=== PATIENT | male | born 1940 | race Caucasian/White ===

== ENCOUNTER → 2017-03-11 | Outpatient (CLI) | payer OTHER ==
[~2017-03-11] MED LIST: Amaryl4 MG PO; Aspir-Low81 MG PO; CLOP75 PO; COLCHICINE0.6 MG; DOXA4 PO; ERGO400 PO; FEBU40TA PO; GLIM2 PO; INSULANPEN; LEVSOD75; Lisinopril2.5 MG; METRONIDAZOLE; Magnesium200 MG PO; PIOG15 PO; Prilosec Otc20 MG; RANI150 PO; REPA1; [UNRECOGNIZED DRUG - REMARK]
[2017-03-11 14:37] LABS: BASOPHILS ABSOLUTE AUTO 0.05 K/mm3 (0.00-0.23); BASOPHILS PERCENT AUTO 1 % (0-2); EOSINOPHILS ABSOLUTE AUTO 0.23 K/mm3 (0.00-0.68); EOSINOPHILS PERCENT AUTO 3 % (0-6); Hematocrit 38.1 % (37.0-53.0); Hemoglobin 12.9 g/dL (13.5-17.5); IMMATURE GRAN ABSOLUTE AUTO 0.02 K/mm3 (0.00-0.10); IMMATURE GRAN PERCENT AUTO 0 % (0-1); LYMPHOCYTES PERCENT AUTO 18 % (21-46); MONOCYTES ABSOLUTE AUTO 0.98 K/mm3 (0.16-1.47); MONOCYTES PERCENT AUTO 12 % (4-13); Mean Corpuscular HGB 31.6 pg (26.0-34.0); Mean Corpuscular HGB Conc 33.9 g/dL (31.5-36.5); Mean Corpuscular Volume 93 fL (80-100); Mean Platelet Volume 10.8 fL (9.1-12.4); NEUTROPHILS ABSOLUTE AUTO 5.46 K/mm3 (1.96-9.15); NEUTROPHILS PERCENT AUTO 66 % (41-73); Platelet Count 158 K/mm3 (150-400); RDW Coefficient Variation 12.4 % (11.7-14.2); RDW Standard Deviation 42.7 fL (35.1-46.3); Red Blood Cell Count 4.08 M/mm3 (4.30-5.90); White Blood Cell Count 8.24 K/mm3 (4.00-11.30)
[2017-03-11 14:49] LABS: Albumin, Blood 3.5 g/dL (3.4-5.0); Albumin/Globulin Ratio 0.9 (0.8-1.8); Bilirubin, Total 0.5 mg/dL (0.1-1.0); Bun/Creatinine Ratio 14.6 (12.0-20.0); Calcium, Blood 9.7 mg/dL (8.5-10.1); Creatinine, Blood 2.12 mg/dL (0.60-1.20); Globulin, Blood 3.9 g/dL (2.2-4.0); Potassium, Blood 5.2 mmol/L (3.5-5.5); Total Protein, Blood 7.4 g/dL (6.4-8.2)
== END ==
LOC: LAB SHORT 14:33
PROVIDERS: Physician Assistant
DX: R73.9 Hyperglycemia, unspecified (principal)
CPT/HCPCS: 80053; 83036; 83690; 85025

== ENCOUNTER → 2017-03-12 | Outpatient (CLI) | payer OTHER ==
[2017-03-12 13:06] LABS: BASOPHILS ABSOLUTE AUTO 0.06 K/mm3 (0.00-0.23); BASOPHILS PERCENT AUTO 1 % (0-2); EOSINOPHILS ABSOLUTE AUTO 0.22 K/mm3 (0.00-0.68); EOSINOPHILS PERCENT AUTO 3 % (0-6); Hematocrit 37.3 % (37.0-53.0); Hemoglobin 12.6 g/dL (13.5-17.5); IMMATURE GRAN ABSOLUTE AUTO 0.03 K/mm3 (0.00-0.10); IMMATURE GRAN PERCENT AUTO 0 % (0-1); LYMPHOCYTES ABSOLUTE AUTO 1.41 K/mm3 (0.84-5.20); LYMPHOCYTES PERCENT AUTO 20 % (21-46); MONOCYTES ABSOLUTE AUTO 0.83 K/mm3 (0.16-1.47); MONOCYTES PERCENT AUTO 12 % (4-13); Mean Corpuscular HGB 31.9 pg (26.0-34.0); Mean Corpuscular HGB Conc 33.8 g/dL (31.5-36.5); Mean Corpuscular Volume 94 fL (80-100); Mean Platelet Volume 10.9 fL (9.1-12.4); NEUTROPHILS ABSOLUTE AUTO 4.66 K/mm3 (1.96-9.15); NEUTROPHILS PERCENT AUTO 65 % (41-73); Platelet Count 164 K/mm3 (150-400); RDW Coefficient Variation 12.4 % (11.7-14.2); Red Blood Cell Count 3.95 M/mm3 (4.30-5.90); White Blood Cell Count 7.21 K/mm3 (4.00-11.30)
[2017-03-12 13:31] LABS: Calcium, Blood 9.4 mg/dL (8.5-10.1); Creatinine, Blood 2.22 mg/dL (0.60-1.20)
== END ==
LOC: LAB SHORT 13:02
PROVIDERS: Physician Assistant
DX: E11.9 Type 2 diabetes mellitus without complications (principal)
CPT/HCPCS: 80048; 83690; 85025

== ENCOUNTER → 2017-07-12 | Outpatient (CLI) | payer OTHER ==
[~2017-07-12] MED LIST changes: -COLCHICINE0.6 MG; -INSULANPEN; -LEVSOD75; -REPA1
[2017-07-13 13:51] LABS: Stool Occult Bld Immuno 1 Positive (NEGATIVE)
== END | disposition home or self-care (01) ==
LOC: LAB EV 09:00
PROVIDERS: Hospitalist
DX: Z12.11 Encounter for screening for malignant neoplasm of colon (principal)
CPT/HCPCS: G0328

== ENCOUNTER → 2018-06-17 | Outpatient (CLI) | payer OTHER ==
[~2018-06-17] MED LIST changes: +COLCHICINE0.6 MG; +INSULANPEN; +LEVSOD75; +REPA1
[2018-06-17 14:02] LABS: Protein, Urine Random <5.0 mg/dL (0.0-11.9)
== END | disposition home or self-care (01) ==
LOC: LAB SRC 09:47 → LAB SHORT 09:47
PROVIDERS: Internal Medicine
DX: E11.22 Type 2 diabetes mellitus with diabetic chronic kidney disease (principal); I12.9 Hypertensive chronic kidney disease with stage 1 through stage 4 chronic kidney disease, or unspecified chronic kidney disease; N18.3 Chronic kidney disease, stage 3 (moderate); E03.8 Other specified hypothyroidism; E78.49 Other hyperlipidemia
CPT/HCPCS: 82570; 84105; 84156

== ENCOUNTER 2019-02-19 21:48 | Inpatient (IN) | payer OTHER ==
[~2019-02-19] VITALS: Ht 182.9 cm; Wt 90.1 kg
[2019-02-19 22:21] LABS: BASOPHILS ABSOLUTE AUTO 0.06 K/mm3 (0.00-0.23); BASOPHILS PERCENT AUTO 1 % (0-2); EOSINOPHILS ABSOLUTE AUTO 0.34 K/mm3 (0.00-0.68); EOSINOPHILS PERCENT AUTO 5 % (0-6); Hematocrit 37.6 % (37.0-53.0); Hemoglobin 12.2 g/dL (13.5-17.5); IMMATURE GRAN ABSOLUTE AUTO 0.03 K/mm3 (0.00-0.10); IMMATURE GRAN PERCENT AUTO 0 % (0-1); LYMPHOCYTES ABSOLUTE AUTO 2.05 K/mm3 (0.84-5.20); LYMPHOCYTES PERCENT AUTO 29 % (21-46); MONOCYTES ABSOLUTE AUTO 1.05 K/mm3 (0.16-1.47); MONOCYTES PERCENT AUTO 15 % (4-13); Mean Corpuscular HGB 31.1 pg (26.0-34.0); Mean Corpuscular HGB Conc 32.4 g/dL (31.5-36.5); Mean Corpuscular Volume 96 fL (80-100); NEUTROPHILS ABSOLUTE AUTO 3.61 K/mm3 (1.96-9.15); NEUTROPHILS PERCENT AUTO 51 % (41-73); Platelet Count 139 K/mm3 (150-400); RDW Coefficient Variation 13.2 % (11.7-14.2); RDW Standard Deviation 46.5 fL (35.1-46.3); Red Blood Cell Count 3.92 M/mm3 (4.30-5.90); White Blood Cell Count 7.14 K/mm3 (4.00-11.30)
[2019-02-19] MEDS ORDERED: COLCRYS0.6 M1 PO (22:21)
[2019-02-19 22:39] LABS: Alanine Aminotransfer (ALT/SGP 22 U/L (12-78); Albumin, Blood 3.3 g/dL (3.4-5.0); Alk Phos 66 U/L (50-136); Anion Gap 6 mmol/L (6-16); Aspartate Aminotrans (AST/SGOT 11 U/L (12-37); Bilirubin, Total 0.3 mg/dL (0.1-1.0); Blood Urea Nitrogen 23 mg/dL (8-24); Bun/Creatinine Ratio 10.2 (12.0-20.0); CO2, Blood 26 mmol/L (21-32); Calcium, Blood 8.8 mg/dL (8.5-10.1); Chloride, Blood 107 mmol/L (98-108); Creatinine, Blood 2.26 mg/dL (0.60-1.20); Globulin, Blood 3.4 g/dL (2.2-4.0); Glomerular Filtration Rate 30 (60-); Glucose, Blood 177 mg/dL (70-99); Potassium, Blood 4.8 mmol/L (3.5-5.5); Sodium, Blood 139 mmol/L (136-145); Total Protein, Blood 6.7 g/dL (6.4-8.2); Troponin I 0.325 ng/mL (0.000-0.040)
[2019-02-20 00:10] LABS: International Normalized Ratio 0.95; Prothrombin Time Results 10.1 Sec (9.7-11.5)
[2019-02-20 00:40] LABS: CHOL/HDL RATIO 5.7; Cholesterol 153 mg/dL (50-200); HDL Cholesterol 27 mg/dL (>39); LDL/HDL RATIO 2.7; Low Density Lipoprotein Chol 73 mg/dL (0-110); Triglycerides 263 mg/dL (30-160); Very Low Density Lipoprot Chol 52 mg/dL (6-32)
--- NOTE | 2019-02-20 06:58 | NUR ---
PT ARRIVED TO UNIT 0250. C/O CHEST PAIN 04/28, NO SOB, DURING ADMISSION PT HAD SUDDEN ONSET HEAVY CHEST PAIN, NITRO DRIP STARTED. TRITRATION UP TO 80MCG/MIN. HEPARIN INFUSING MONITORED BY PHARMACY. ON 3L O2 FOR COMFORT. CARDIAC CONSULT ORDERED.
--- NOTE | 2019-02-20 07:50 | NUR ---
ASSUMED CARE RECEIVED REPORT FROM LINA JOSHI. PT IS LYING IN BED WITH 6/10 CHEST PAIN THAT IS A CONSTANT PRESSURE. PT DENIES SOB, AND NAUSEA. PT APPEARS TO BE DRY. HE HAS A NITRO GTTP AT 80MCG/MIN, AND A HEPARIN GTTP AT 13 UNITS/KG/HR. BED IS LOW AND LOCKED. CALL LIGHT WITHIN REACH.
--- NOTE | 2019-02-20 10:02 | NUR ---
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 O2 SATS > 94% ON RA. BP STABLE. HEPARIN WAS ON STANDBY, NITRO AT 60MCG/MIN. PT HAVING 5/10 CHEST PAIN, CONSTANT PRESSURE.
--- NOTE | 2019-02-20 14:09 | NUR ---
PT WAS BACK FROM THE [facility] AT AROUND 1133 THIS MORNING. THEY DID A RIGHT FEMORAL ARTERY ACCESS SITE, THAT IS SOFT, NONTENDER, AND NOT OOZING AT ALL. THEY SEALED THE ARTERY WITH AN ANGIOSEAL. DR. Farris SAID HE CAN HAVE THE HOB UP TO 30 DEGREES, DUE TO HIS IMMENSE BACK PAIN. CHEST PAIN UPON RETURN TO THE ICU WAS VERY MILD AROUND 3/10 - WITH THE NITROGLYCERIN (NTG) GTTP STILL INFUSING. DR. Farris ALSO SAID TO MAINTAIN THE SBP > 100 WHILE TITRATING NTG. UPON MEDICATING FOR HIS BACK PAIN, HE BECAME VERY NAUSEOUS AND WAS DRY HEAVING. ZOFRAN WAS GIVEN. AFTER 2MG OF MORPHINE, AND 1MG OF DILAUDID HE WAS ABLE TO TAKE A NICE NAP. HOWEVER HE REQUIRED 2L NC TO MAINTAIN HIS SAT'S IN THE 90'S. AFTER THE CATH PROCEDURE DR. Farris DETERMINED THAT THIS PT REQUIRED A CABG AND A ROOM AT [facility] WAS REQUESTED. PRIOR TO TRANSPORT HE COMPLAINED OF 3/10 TIGHT, PRESSURE CHEST PAIN, AND 10/10 THROBBING/ACHING BACK PAIN. VITALS WERE STABLE, HR REMAINED IN THE 60'S, FIRST AV HB. BP STABLE, ALTHOUGH A LOW DIASTOLIC BP OF 33 (BUT PROBABLY DUE TO POSITIONING OF BP CUFF). O2 SATS, RR, AND TEMP STABLE. NS INFUSING AT 200ML/HR, NTG INFUSING AT 30MCG/MIN. HE LEFT OUR ICU WITH [facility] AT 1408. NOTIFIED OF DEPARTURE.
[2019-03-14] MEDS ORDERED: METOPROLOL SUCC25 MG PO (21:23)
[2019-03-14] MEDS ORDERED: Doxazosin Mesyla4 MG PO (21:23)
[2019-03-14] MEDS ORDERED: PLAVIX75 MG PO (21:23)
[2019-03-14] MEDS ORDERED: Crestor20 MG PO (21:23)
[2019-03-14] MEDS ORDERED: BASAGLAR K100 UNIT/1 SC (21:24)
[2019-03-14] MEDS ORDERED: SYNTHROID75 MCG PO (21:24)
[2019-03-14] MEDS ORDERED: REPAGLINIDE0.5 MG PO (21:24)
[2019-03-14] MEDS ORDERED: FUROSEMIDE40 MG PO (21:44)
[2019-03-14] MEDS ORDERED: Lasix40 MG PO (22:07)
[2019-03-14] MEDS ORDERED: Toprol Xl50 MG PO (22:07)
== END 2019-02-20 14:00 | disposition short-term general hospital (02) | DRG 280 ==
LOC: ER 21:48 → ICUW 02-20 00:58
PROVIDERS: Emergency Medicine; ADMIT Internal Medicine
PROC: 4A023N7 Measurement of Cardiac Sampling and Pressure, Left Heart, Percutaneous Approach (ICD-10-PCS; principal; 2019-02-20)
PROC: B211YZZ Fluoroscopy of Multiple Coronary Arteries using Other Contrast (ICD-10-PCS; 2019-02-20)
DX: I21.4 Non-ST elevation (NSTEMI) myocardial infarction (principal); J96.01 Acute respiratory failure with hypoxia; E11.51 Type 2 diabetes mellitus with diabetic peripheral angiopathy without gangrene; E11.22 Type 2 diabetes mellitus with diabetic chronic kidney disease; I12.9 Hypertensive chronic kidney disease with stage 1 through stage 4 chronic kidney disease, or unspecified chronic kidney disease; N18.3 Chronic kidney disease, stage 3 (moderate); Z79.4 Long term (current) use of insulin; E03.9 Hypothyroidism, unspecified; E78.5 Hyperlipidemia, unspecified; J44.9 Chronic obstructive pulmonary disease, unspecified; K21.9 Gastro-esophageal reflux disease without esophagitis; Z87.891 Personal history of nicotine dependence; I24.9 Acute ischemic heart disease, unspecified; I25.110 Atherosclerotic heart disease of native coronary artery with unstable angina pectoris; I25.82 Chronic total occlusion of coronary artery
CPT/HCPCS: 36415; 71046; 80053; 80061; 82947; 83690; 83880; 84484; 85025; 85347; 85610; 85730; 93005; 93010; 93306; 93454; 93571; 96365; 96376; 99152; 99153; 99285-25; A9270; C1760; C1769; C1887; C1894; C9113; J1170; J1644; J2250; J2270; J2405; J3010; J7030; Q9967

== ENCOUNTER → 2019-03-14 | Outpatient (CLI) | payer OTHER ==
[~2019-03-14] MED LIST changes: +BASAGLAR K100 UNIT/1 SC; +COLCRYS0.6 M1 PO; +Crestor20 MG PO; +Doxazosin Mesyla4 MG PO; +FUROSEMIDE40 MG PO; +Lasix40 MG PO; +METOPROLOL SUCC25 MG PO; +PLAVIX75 MG PO; +REPAGLINIDE0.5 MG PO; +SYNTHROID75 MCG PO; +Toprol Xl50 MG PO
[2019-03-14 17:33] LABS: BASOPHILS ABSOLUTE AUTO 0.05 K/mm3 (0.00-0.23); BASOPHILS PERCENT AUTO 1 % (0-2); EOSINOPHILS ABSOLUTE AUTO 0.51 K/mm3 (0.00-0.68); EOSINOPHILS PERCENT AUTO 7 % (0-6); Hematocrit 29.3 % (37.0-53.0); Hemoglobin 9.4 g/dL (13.5-17.5); IMMATURE GRAN ABSOLUTE AUTO 0.03 K/mm3 (0.00-0.10); IMMATURE GRAN PERCENT AUTO 0 % (0-1); LYMPHOCYTES ABSOLUTE AUTO 1.45 K/mm3 (0.84-5.20); LYMPHOCYTES PERCENT AUTO 19 % (21-46); MONOCYTES ABSOLUTE AUTO 0.85 K/mm3 (0.16-1.47); MONOCYTES PERCENT AUTO 11 % (4-13); Mean Corpuscular HGB 30.9 pg (26.0-34.0); Mean Corpuscular HGB Conc 32.1 g/dL (31.5-36.5); Mean Corpuscular Volume 96 fL (80-100); Mean Platelet Volume 10.4 fL (9.1-12.4); NEUTROPHILS ABSOLUTE AUTO 4.77 K/mm3 (1.96-9.15); NEUTROPHILS PERCENT AUTO 62 % (41-73); Platelet Count 164 K/mm3 (150-400); RDW Coefficient Variation 13.7 % (11.7-14.2); RDW Standard Deviation 48.2 fL (35.1-46.3); Red Blood Cell Count 3.04 M/mm3 (4.30-5.90); White Blood Cell Count 7.66 K/mm3 (4.00-11.30)
[2019-03-14 17:37] LABS: Bun/Creatinine Ratio 12.4 (12.0-20.0); Calcium, Blood 8.8 mg/dL (8.5-10.1); Creatinine, Blood 2.5 mg/dL (0.60-1.20); Potassium, Blood 4.7 mmol/L (3.5-5.5)
== END | disposition home or self-care (01) ==
LOC: LAB SHORT 17:28 → LAB EV 17:28
PROVIDERS: Physician Assistant Surgical
DX: N18.3 Chronic kidney disease, stage 3 (moderate) (principal); M79.89 Other specified soft tissue disorders
CPT/HCPCS: 80048; 83880; 84484; 85025

== ENCOUNTER → 2019-07-22 | Outpatient (CLI) | payer OTHER ==
[~2019-07-22] MED LIST changes: +AMLO5 PO; +Aspirin EC81 MG PO; +ESOM20 PO; +LEVOFLOXACIN250 MG PO; +MELA3 PO
== END | disposition home or self-care (01) ==
LOC: LAB SHORT 10:29 → PLD 10:29
DX: D48.5 Neoplasm of uncertain behavior of skin (principal)
CPT/HCPCS: 88305

== ENCOUNTER → 2020-11-19 | Outpatient (CLI) | payer OTHER ==
[2020-11-19 18:13] LABS: Creatinine, Urine Random 64.5 mg/dL (27.00-270.00); Protein, Urine Random 10.5 mg/dL (0.0-11.9); Protein/Creat Ratio, Ur Random 0.2
== END | disposition home or self-care (01) ==
LOC: LAB SHORT 12:52
PROVIDERS: Internal Medicine
DX: N18.4 Chronic kidney disease, stage 4 (severe) (principal)
CPT/HCPCS: 82570; 84156

== ENCOUNTER → 2021-08-18 | Outpatient (CLI) | payer OTHER ==
[2021-08-19 10:16] LABS: Stool Occult Bld Immuno 1 Negative (NEGATIVE)
== END | disposition home or self-care (01) ==
LOC: LAB SHORT 12:26 → LAB 12:26
PROVIDERS: Hospitalist
DX: Z12.11 Encounter for screening for malignant neoplasm of colon (principal)
CPT/HCPCS: 82274

== ENCOUNTER → 2022-04-06 | Outpatient (CLI) | payer OTHER ==
[2022-04-06 13:59] LABS: Stool Occult Bld Immuno 1 Positive (NEGATIVE)
== END | disposition home or self-care (01) ==
LOC: LAB SHORT 07:40 → LAB 07:40
PROVIDERS: Hospitalist
DX: Z12.11 Encounter for screening for malignant neoplasm of colon (principal)
CPT/HCPCS: G0328

== ENCOUNTER 2022-08-30 15:43 | Emergency (ER) | payer OTHER ==
[~2022-08-30] VITALS: Ht 182.9 cm; Wt 86.2 kg
[2022-08-30 17:04] LABS: BASOPHILS ABSOLUTE AUTO 0.08 K/mm3 (0.00-0.23); BASOPHILS PERCENT AUTO 1 % (0-2); EOSINOPHILS PERCENT AUTO 8 % (0-6); Hemoglobin 12.5 g/dL (13.5-17.5); IMMATURE GRAN ABSOLUTE AUTO 0.04 K/mm3 (0.00-0.10); IMMATURE GRAN PERCENT AUTO 1 % (0-1); LYMPHOCYTES PERCENT AUTO 23 % (21-46); MONOCYTES ABSOLUTE AUTO 1.28 K/mm3 (0.16-1.47); MONOCYTES PERCENT AUTO 15 % (4-13); Mean Corpuscular HGB 31.3 pg (26.0-34.0); Mean Corpuscular HGB Conc 32.9 g/dL (31.5-36.5); Mean Corpuscular Volume 95 fL (80-100); Mean Platelet Volume 11.2 fL (9.1-12.4); NEUTROPHILS ABSOLUTE AUTO 4.41 K/mm3 (1.96-9.15); NEUTROPHILS PERCENT AUTO 52 % (41-73); Platelet Count 177 K/mm3 (150-400); RDW Coefficient Variation 13.6 % (11.7-14.2); RDW Standard Deviation 48.1 fL (35.1-46.3); Red Blood Cell Count 3.99 M/mm3 (4.30-5.90); White Blood Cell Count 8.41 K/mm3 (4.00-11.30)
[2022-08-30 17:11] LABS: International Normalized Ratio 0.99; Prothrombin Time Results 10.4 Sec (9.7-11.5)
[2022-08-30 17:21] LABS: Albumin, Blood 3.8 g/dL (3.4-5.0); Bilirubin, Total 0.3 mg/dL (0.1-1.0); Bun/Creatinine Ratio 12.9 (12.0-20.0); Calcium, Blood 10.1 mg/dL (8.5-10.1); Creatinine, Blood 3.88 mg/dL (0.60-1.20); Globulin, Blood 3.7 g/dL (2.2-4.0); Potassium, Blood 5.2 mmol/L (3.5-5.5); Total Protein, Blood 7.5 g/dL (6.4-8.2)
[2022-08-30 20:55] VITALS: BP 120/88
== END 2022-08-30 20:57 | disposition home or self-care (01) ==
LOC: ER 15:43
PROVIDERS: Emergency Medicine
DX: I44.1 Atrioventricular block, second degree (principal); R06.6 Hiccough; E11.9 Type 2 diabetes mellitus without complications; I10 Essential (primary) hypertension; I25.2 Old myocardial infarction; Z79.4 Long term (current) use of insulin; Z79.890 Hormone replacement therapy; Z79.82 Long term (current) use of aspirin; Z79.899 Other long term (current) drug therapy; Z87.891 Personal history of nicotine dependence
CPT/HCPCS: 71045; 80053; 83880; 84484; 85025; 85610; 93005; 93010; 99284-25

== ENCOUNTER 2022-08-31 18:00 | Emergency (ER) | payer OTHER ==
[~2022-08-31] VITALS: Ht 182.9 cm; Wt 81.7 kg
[2022-08-31 18:38] LABS: BASOPHILS ABSOLUTE AUTO 0.09 K/mm3 (0.00-0.23); BASOPHILS PERCENT AUTO 1 % (0-2); EOSINOPHILS ABSOLUTE AUTO 0.85 K/mm3 (0.00-0.68); EOSINOPHILS PERCENT AUTO 10 % (0-6); IMMATURE GRAN ABSOLUTE AUTO 0.02 K/mm3 (0.00-0.10); IMMATURE GRAN PERCENT AUTO 0 % (0-1); LYMPHOCYTES ABSOLUTE AUTO 1.95 K/mm3 (0.84-5.20); LYMPHOCYTES PERCENT AUTO 23 % (21-46); MONOCYTES ABSOLUTE AUTO 1.39 K/mm3 (0.16-1.47); MONOCYTES PERCENT AUTO 16 % (4-13); Mean Corpuscular HGB 31.3 pg (26.0-34.0); Mean Corpuscular HGB Conc 33.3 g/dL (31.5-36.5); Mean Corpuscular Volume 94 fL (80-100); NEUTROPHILS ABSOLUTE AUTO 4.36 K/mm3 (1.96-9.15); NEUTROPHILS PERCENT AUTO 50 % (41-73); Platelet Count 185 K/mm3 (150-400); RDW Coefficient Variation 13.5 % (11.7-14.2); Red Blood Cell Count 4.15 M/mm3 (4.30-5.90); White Blood Cell Count 8.66 K/mm3 (4.00-11.30)
[2022-08-31 19:16] LABS: Albumin/Globulin Ratio 1.1 (0.8-1.8); Bilirubin, Total 0.4 mg/dL (0.1-1.0); Bun/Creatinine Ratio 12.8 (12.0-20.0); Calcium, Blood 9.6 mg/dL (8.5-10.1); Creatinine, Blood 3.99 mg/dL (0.60-1.20); Globulin, Blood 3.6 g/dL (2.2-4.0); Potassium, Blood 4.9 mmol/L (3.5-5.5); Total Protein, Blood 7.6 g/dL (6.4-8.2)
[2022-08-31 20:45] VITALS: BP 142/52
== END 2022-08-31 21:31 | disposition short-term general hospital (02) ==
LOC: ER 18:00
PROVIDERS: Emergency Medicine
DX: I63.9 Cerebral infarction, unspecified (principal); G81.94 Hemiplegia, unspecified affecting left nondominant side; R29.810 Facial weakness; E11.51 Type 2 diabetes mellitus with diabetic peripheral angiopathy without gangrene; I25.2 Old myocardial infarction; Z87.891 Personal history of nicotine dependence; Z79.4 Long term (current) use of insulin; Z79.82 Long term (current) use of aspirin; Z79.899 Other long term (current) drug therapy
CPT/HCPCS: 70450; 70496; 70498; 80053; 85025; 93005; 93010; 96374-59; 99285-25; J3101; J7030; Q9967

== ENCOUNTER → 2022-09-10 | Outpatient (CLI) | payer OTHER | LOC: LAB 11:00 → LAB SHORT 11:00 | DX: R30.0 Dysuria (principal) | CPT/HCPCS: 87077; 87086; 87186 ==

== ENCOUNTER 2023-03-12 11:41 | Inpatient (IN) | payer OTHER ==
[~2023-03-12] VITALS: Ht 182.9 cm; Wt 74.3 kg
[2023-03-12 12:10] LABS: BASOPHILS ABSOLUTE AUTO 0.06 K/mm3 (0.00-0.23); BASOPHILS PERCENT AUTO 1 % (0-2); EOSINOPHILS ABSOLUTE AUTO 0.34 K/mm3 (0.00-0.68); EOSINOPHILS PERCENT AUTO 4 % (0-6); Hematocrit 26.8 % (37.0-53.0); Hemoglobin 8.6 g/dL (13.5-17.5); IMMATURE GRAN ABSOLUTE AUTO 0.03 K/mm3 (0.00-0.10); IMMATURE GRAN PERCENT AUTO 0 % (0-1); LYMPHOCYTES ABSOLUTE AUTO 0.73 K/mm3 (0.84-5.20); LYMPHOCYTES PERCENT AUTO 9 % (21-46); MONOCYTES ABSOLUTE AUTO 0.99 K/mm3 (0.16-1.47); MONOCYTES PERCENT AUTO 12 % (4-13); Mean Corpuscular HGB 28.8 pg (26.0-34.0); Mean Corpuscular HGB Conc 32.1 g/dL (31.5-36.5); Mean Corpuscular Volume 90 fL (80-100); NEUTROPHILS ABSOLUTE AUTO 6.39 K/mm3 (1.96-9.15); NEUTROPHILS PERCENT AUTO 75 % (41-73); Platelet Count 229 K/mm3 (150-400); RDW Coefficient Variation 15.9 % (11.7-14.2); RDW Standard Deviation 51.8 fL (35.1-46.3); Red Blood Cell Count 2.99 M/mm3 (4.30-5.90); White Blood Cell Count 8.54 K/mm3 (4.00-11.30)
[2023-03-12 12:32] LABS: Albumin, Blood 3.2 g/dL (3.4-5.0); Albumin/Globulin Ratio 0.8 (0.8-1.8); Bilirubin, Total 0.7 mg/dL (0.1-1.0); Bun/Creatinine Ratio 16.1 (12.0-20.0); Calcium, Blood 9.3 mg/dL (8.5-10.1); Creatinine, Blood 3.66 mg/dL (0.60-1.20); Globulin, Blood 4.1 g/dL (2.2-4.0); Total Protein, Blood 7.3 g/dL (6.4-8.2)
[2023-03-12 12:51] LABS: Adenovirus Not Detected (NOT DETECT); Bordetella pertussis Not Detected (NOT DETECT); Chlamydophila pneumoniae Not Detected (NOT DETECT); Coronavirus 229E Not Detected (NOT DETECT); Coronavirus HKU1 Not Detected (NOT DETECT); Coronavirus NL63 Not Detected (NOT DETECT); Coronavirus OC43 Not Detected (NOT DETECT); Human Metapneumovirus Not Detected (NOT DETECT); Human Rhinovirus/Enterovirus Not Detected (NOT DETECT); Influenza A/2009-H1 Not Detected (NOT DETECT); Influenza A/H1 Not Detected (NOT DETECT); Influenza A/H3 Not Detected (NOT DETECT); Influenza B Not Detected (NOT DETECT); Mycoplasma pneumoniae Not Detected (NOT DETECT); Parainfluenza Virus 1 Not Detected (NOT DETECT); Parainfluenza Virus 2 Not Detected (NOT DETECT); Parainfluenza Virus 3 Not Detected (NOT DETECT); Parainfluenza Virus 4 Not Detected (NOT DETECT); Respiratory Syncytial Virus Not Detected (NOT DETECT); SARS-Cov-2 (COVID-19), BioFire Not Detected (NOT DETECT)
[2023-03-12] MEDS ORDERED: AMLO10 PO (15:07)
[2023-03-12] MEDS ORDERED: ELIQUIS2.5 M1 PO (15:07)
[2023-03-12] MEDS ORDERED: ASPIR 8181 M1 PO (15:08)
[2023-03-12] MEDS ORDERED: CYCL10 PO (15:09)
[2023-03-12] MEDS ORDERED: CARDURA2 M1 PO (15:10)
[2023-03-12] MEDS ORDERED: FURO80 PO (15:11)
[2023-03-12] MEDS ORDERED: HYDR10 PO (15:12)
[2023-03-12] MEDS ORDERED: NOVOLIN N SC (15:13)
[2023-03-12] MEDS ORDERED: SYNTHROID75 MCG PO (15:15)
[2023-03-12] MEDS ORDERED: METO25ER PO ×2 (15:16→20:04)
[2023-03-12] MEDS ORDERED: TIZANIDINE HCL2 M1 PO (15:17)
[2023-03-12 19:24] VITALS: BP 126/94
[2023-03-12] MEDS ORDERED: NITR.4SL SL (19:56)
--- NOTE | 2023-03-12 21:54 | NUR ---
ADMIT NOTE (LATE ENTRY) PATIENT ADMITTED FROM ER AT 1924 HOURS HANDOFF GIVEN TO DAY RN FROM [facility]. DAY RN GAVE REPORT TO ME. PT ARRIVED TO FLOOR VIA GURNEY. TELEMETRY NOW IN PLACE. [address] DYSPNEA WITH EXERTION. PT ORIENTED TO UNIT. CALL BUTTON WITHIN REACH.
[2023-03-13 03:10] VITALS: BP 132/69
--- NOTE | 2023-03-13 04:18 | NUR ---
SHIFT SUMMARY ADMITTED FOR RUL PNEUMONIA. DNR CODE. IV ANTIB RX ARE SCHEDULED. BLOOD CX'S SENT. [facility] MEDIUM SS. HE IS ON 3 LPM O2 HERE, ON RA AT HOME. CURRENTLY UNUSED FISTULA IN LEFT ARM. HE IS A&O X3, ANXIETY NOTED. HX OF COPD, CHF, CKD4, AFIB. WA. HGB NOTED TO BE 8.6 ON ADMIT.
[2023-03-13 04:58] LABS: BASOPHILS ABSOLUTE AUTO 0.07 K/mm3 (0.00-0.23); BASOPHILS PERCENT AUTO 1 % (0-2); EOSINOPHILS PERCENT AUTO 6 % (0-6); Hematocrit 24.5 % (37.0-53.0); Hemoglobin 7.8 g/dL (13.5-17.5); IMMATURE GRAN ABSOLUTE AUTO 0.03 K/mm3 (0.00-0.10); IMMATURE GRAN PERCENT AUTO 0 % (0-1); LYMPHOCYTES ABSOLUTE AUTO 0.73 K/mm3 (0.84-5.20); LYMPHOCYTES PERCENT AUTO 9 % (21-46); MONOCYTES ABSOLUTE AUTO 0.95 K/mm3 (0.16-1.47); MONOCYTES PERCENT AUTO 12 % (4-13); Mean Corpuscular HGB 28.8 pg (26.0-34.0); Mean Corpuscular HGB Conc 31.8 g/dL (31.5-36.5); Mean Corpuscular Volume 90 fL (80-100); Mean Platelet Volume 11.5 fL (9.1-12.4); NEUTROPHILS ABSOLUTE AUTO 5.69 K/mm3 (1.96-9.15); NEUTROPHILS PERCENT AUTO 71 % (41-73); Platelet Count 224 K/mm3 (150-400); RDW Coefficient Variation 15.9 % (11.7-14.2); RDW Standard Deviation 52.6 fL (35.1-46.3); Red Blood Cell Count 2.71 M/mm3 (4.30-5.90); White Blood Cell Count 7.97 K/mm3 (4.00-11.30)
[2023-03-13 05:20] LABS: Albumin, Blood 2.8 g/dL (3.4-5.0); Albumin/Globulin Ratio 0.7 (0.8-1.8); Bilirubin, Total 0.7 mg/dL (0.1-1.0); Bun/Creatinine Ratio 17.4 (12.0-20.0); Calcium, Blood 8.9 mg/dL (8.5-10.1); Creatinine, Blood 3.56 mg/dL (0.60-1.20); Globulin, Blood 3.8 g/dL (2.2-4.0); Magnesium, Blood 2.5 mg/dL (1.6-2.4); Phosphorus, Blood 4.3 mg/dL (2.5-4.9); Potassium, Blood 3.8 mmol/L (3.5-5.5); Total Protein, Blood 6.6 g/dL (6.4-8.2)
[2023-03-13 07:16] VITALS: BP 120/74
--- NOTE | 2023-03-13 07:28 | NUR ---
ASSUMED CARE: PT SITTING UP IN RECLINER. NC AT 3L, SOB AND WHEEZY ON EXERTION. AFIB IN 70S ON TELE. ASKED STAFF TO EXAMINE IV DUE TO SOME BLOOD ON DRESSING. DRESSING CHANGED AND IV FLUSHED WITH NO ISSUES. CALL LIGHT IN REACH. DENIES OTHER NEEDS OR CONCERNS AT THIS TIME.
[2023-03-13 13:09] VITALS: BP 119/81
--- NOTE | 2023-03-13 14:02 | NUR ---
I had a wonderful visit with patient and his spouse of 60 yrs Sunshine. They are pleasant and have a genuine love for God and each other. They share about their family with grown children in [place] and [place]. They discuss their deep Sabianism ashok that inspires and directs their life with all it's victories and challenges. Patient tells me that he feels as if his time on earth is drawing to a close. He is tearful as he shares about the love and adoration that he and Sunshine have for each other and the though of seperation is painful. They discuss the idea of moving into an assisted living facility and still finding thaings to look forward to. I normalize their experience, reinforce helpful attitudes and practices and provide therapeutic listening and prayer. Patient and Sunshine responded well and showed signs of an increase in peace and joyful expectancy for the future. I will continue to remain available to patient and family.
[2023-03-13 16:46] VITALS: BP 125/84
--- NOTE | 2023-03-13 18:41 | NUR ---
SHIFT SUMMARY: PT UP IN CHAIR MOST OF SHIFT TODAY. REMAINS ON 3L O2 VIA NC. AFIB WITH RATE CONTROL IN 70S ON TELE. AMBULATED IN [place] WITH THERAPY TODAY. ECHO AND CHEST CT COMPLETED. DENIES OTHER NEEDS OR CONCERNS.
[2023-03-13 19:27] VITALS: BP 152/68
--- NOTE | 2023-03-14 04:19 | NUR ---
SHIFT SUMMARY ADMITTED FOR RUL PNEUMONIA. DNR CODE. ANTIB RX ARE SCHEDULED. BLOOD CULTURES PENDING. HE IS MUCH STEADIER ON HIS FEET THIS SHIFT. HE WAS COMFORTABLE ON RA PART OF THIS SHIFT. HE HAS A CURRENTLY UNUSED LEFT ARM FISTULA. [facility] - MEDIUM SS. SPUTUM SAMPLE SENT ON PREVIOUS SHIFT. HX: COPD, DM2, CHF, AFIB, UT. IT IS HIS BIRTHDAY TODAY.
[2023-03-14 04:42] VITALS: BP 111/65
[2023-03-14 05:20] LABS: BASOPHILS ABSOLUTE AUTO 0.05 K/mm3 (0.00-0.23); BASOPHILS PERCENT AUTO 0 % (0-2); EOSINOPHILS ABSOLUTE AUTO 0.23 K/mm3 (0.00-0.68); EOSINOPHILS PERCENT AUTO 2 % (0-6); Hematocrit 23.3 % (37.0-53.0); Hemoglobin 7.6 g/dL (13.5-17.5); IMMATURE GRAN ABSOLUTE AUTO 0.06 K/mm3 (0.00-0.10); IMMATURE GRAN PERCENT AUTO 1 % (0-1); LYMPHOCYTES ABSOLUTE AUTO 0.56 K/mm3 (0.84-5.20); LYMPHOCYTES PERCENT AUTO 5 % (21-46); MONOCYTES ABSOLUTE AUTO 1.36 K/mm3 (0.16-1.47); MONOCYTES PERCENT AUTO 11 % (4-13); Mean Corpuscular HGB 29.3 pg (26.0-34.0); Mean Corpuscular HGB Conc 32.6 g/dL (31.5-36.5); Mean Corpuscular Volume 90 fL (80-100); Mean Platelet Volume 11.6 fL (9.1-12.4); NEUTROPHILS ABSOLUTE AUTO 9.81 K/mm3 (1.96-9.15); NEUTROPHILS PERCENT AUTO 81 % (41-73); Platelet Count 230 K/mm3 (150-400); RDW Coefficient Variation 15.9 % (11.7-14.2); Red Blood Cell Count 2.59 M/mm3 (4.30-5.90); White Blood Cell Count 12.07 K/mm3 (4.00-11.30)
[2023-03-14 06:55] LABS: Albumin, Blood 2.9 g/dL (3.4-5.0); Albumin/Globulin Ratio 0.7 (0.8-1.8); Bilirubin, Total 0.6 mg/dL (0.1-1.0); Bun/Creatinine Ratio 18.1 (12.0-20.0); Calcium, Blood 9.1 mg/dL (8.5-10.1); Creatinine, Blood 3.53 mg/dL (0.60-1.20); Globulin, Blood 3.9 g/dL (2.2-4.0); Total Protein, Blood 6.8 g/dL (6.4-8.2)
[2023-03-14 07:17] VITALS: BP 137/88
--- NOTE | 2023-03-14 10:46 | NUR ---
SPOKE TO DR COY- RECIEVED A CALL FROM TELE ASKING IF THE PT HAS HAD AN EKG, HE DID HAVE ONE IN THE ED; SPOKE TO DR COY AND HER REVIEWED THE EKG'S AND ORDERED DC TELE. SPOKE TO DR COY ABOUT THE PT INSULIN DOSE. PT IS ON MED CORRECTION WITH 5UNITS WITH MEALS. YESTERDAY HIS BG WAS 171 AND HE RECIEVED 7 UNITS AND HIS NEXT BG WAS 64. PT SPOUSE STATES HE HAS MORE TROUBLE WITH LOW BGS THAN HIGH AT HOME LATELY. MD HUERTA. CRALOG CHANGED TO 3UNITS WITH MEALS AND LOW CS. HOME O2 EVAL ORDERED WITH THE PLAN FOR THE PT TO DC HOME TOMORROW. SPOKE TO RT ABOUT TITRATING O2 DOWN A LITTLE LAST SAT WAS 97% ON 3L. RT ASKED ABOUT LAST NIGHT WHEN SATS WERE 90% ON 3L, DO WE NEED NIGHT OXEMITRY? SPOKE TO DR COY ASKED ABOUT NIGHT OXEMETRY, NO NEW ORDER AT THIS TIME.
[2023-03-14 14:43] VITALS: BP 139/67
--- NOTE | 2023-03-14 19:22 | NUR ---
report received verified a/o x4 at bedside. pt vss very emotional this morning, its the pt birthday. pt assisted to chair and c/o back pain stated this happens to him sometimes. tylenol orsered and heat pad placed on back. pt refused to eat lunch so insulin was held. pain cont so pt bed was reenforced with pink pad and pillow. pt was floated on both sides and fell asleep. dinner set up for pt insulin given when tray was in room, but pt didnt eat dinner so snack was given and is now sitting up in chair.
[2023-03-14 21:24] VITALS: BP 132/64
[2023-03-15] VITALS (9 sets, daily range): BP systolic 119–184; BP diastolic 53–82
--- NOTE | 2023-03-15 04:22 | NUR ---
SHIFT SUMMARY ADMITTED FOR RUL PNEUMONIA & ANEMIA. DNR CODE. HE IS HOPEFUL FOR DC HOME TODAY. POSSIBLE HOME O2 EVAL NEEDED. IV ANTIB RX ARE SCHEDULED. AWAITING BLOOD CX. LEFT ARM FISTULA - NOT CURRENTLY USED. HE IS ON 3 LPM O2, RA @ HOME. NO NEW CONCERNS THIS SHIFT.
[2023-03-15 05:06] LABS: BASOPHILS ABSOLUTE AUTO 0.01 K/mm3 (0.00-0.23); BASOPHILS PERCENT AUTO 0 % (0-2); EOSINOPHILS PERCENT AUTO 0 % (0-6); Hematocrit 22.3 % (37.0-53.0); IMMATURE GRAN ABSOLUTE AUTO 0.06 K/mm3 (0.00-0.10); IMMATURE GRAN PERCENT AUTO 1 % (0-1); LYMPHOCYTES ABSOLUTE AUTO 0.49 K/mm3 (0.84-5.20); LYMPHOCYTES PERCENT AUTO 5 % (21-46); MONOCYTES ABSOLUTE AUTO 0.63 K/mm3 (0.16-1.47); MONOCYTES PERCENT AUTO 7 % (4-13); Mean Corpuscular HGB 28.3 pg (26.0-34.0); Mean Corpuscular HGB Conc 31.4 g/dL (31.5-36.5); Mean Corpuscular Volume 90 fL (80-100); Mean Platelet Volume 11.6 fL (9.1-12.4); NEUTROPHILS ABSOLUTE AUTO 8.43 K/mm3 (1.96-9.15); NEUTROPHILS PERCENT AUTO 88 % (41-73); Platelet Count 216 K/mm3 (150-400); RDW Coefficient Variation 15.8 % (11.7-14.2); RDW Standard Deviation 51.8 fL (35.1-46.3); Red Blood Cell Count 2.47 M/mm3 (4.30-5.90); White Blood Cell Count 9.62 K/mm3 (4.00-11.30)
[2023-03-15 05:32] LABS: Albumin, Blood 2.7 g/dL (3.4-5.0); Albumin/Globulin Ratio 0.7 (0.8-1.8); Bilirubin, Total 0.5 mg/dL (0.1-1.0); Bun/Creatinine Ratio 20.2 (12.0-20.0); Creatinine, Blood 3.62 mg/dL (0.60-1.20); Globulin, Blood 3.8 g/dL (2.2-4.0); Potassium, Blood 4.2 mmol/L (3.5-5.5); Total Protein, Blood 6.5 g/dL (6.4-8.2)
[2023-03-15] MEDS ORDERED: Acetaminophen650 M1 PO (15:16)
[2023-03-15] MEDS ORDERED: HUMALOG KW100 UNIT/1 SC (15:16)
[2023-03-15] MEDS ORDERED: Prednisone10 MG PO (15:17)
[2023-03-15] MEDS ORDERED: CEFP200 PO (15:17)
[2023-03-15] MEDS ORDERED: SERT25 PO (15:17)
[2023-03-15] MEDS ORDERED: AZIT250 PO (15:18)
--- NOTE | 2023-03-15 19:21 | NUR ---
RT FINISHED O2 EVAL AND CONCLUDED PT WOULD NOT NEED HOME O2, PT AND VERY HAPPY ABOUT THAT. 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 IV DC PT TAKEN VIA WHEEL CHAIR, DROVE HOME
== END 2023-03-15 17:27 | disposition home health service (06) | DRG 811 ==
LOC: ER 11:41 → MEDS 14:53
PROVIDERS: Hospitalist; Student in an Organized Health Care Education/Training Program; ADMIT Family Medicine
PROC: 30233N1 Transfusion of Nonautologous Red Blood Cells into Peripheral Vein, Percutaneous Approach (ICD-10-PCS; principal; 2023-03-12)
DX: D62 Acute posthemorrhagic anemia (principal); J18.9 Pneumonia, unspecified organism; J96.01 Acute respiratory failure with hypoxia; I13.0 Hypertensive heart and chronic kidney disease with heart failure and stage 1 through stage 4 chronic kidney disease, or unspecified chronic kidney disease; N18.4 Chronic kidney disease, stage 4 (severe); I50.22 Chronic systolic (congestive) heart failure; J44.0 Chronic obstructive pulmonary disease with (acute) lower respiratory infection; I48.91 Unspecified atrial fibrillation; E03.9 Hypothyroidism, unspecified; Z66 Do not resuscitate; J44.9 Chronic obstructive pulmonary disease, unspecified; I25.10 Atherosclerotic heart disease of native coronary artery without angina pectoris; E11.22 Type 2 diabetes mellitus with diabetic chronic kidney disease; D63.1 Anemia in chronic kidney disease; F32.A Depression, unspecified; J43.9 Emphysema, unspecified; Z87.891 Personal history of nicotine dependence; Z91.048 Other nonmedicinal substance allergy status; Z79.82 Long term (current) use of aspirin; Z79.02 Long term (current) use of antithrombotics/antiplatelets; Z79.899 Other long term (current) drug therapy; Z79.4 Long term (current) use of insulin; Z79.890 Hormone replacement therapy; I27.20 Pulmonary hypertension, unspecified; Z11.52 Encounter for screening for COVID-19; Z88.8 Allergy status to other drugs, medicaments and biological substances
CPT/HCPCS: 0202U; 36415; 71046; 71250; 80053; 82947; 83605; 83735; 84100; 84145; 85025; 86850; 86900; 86901; 86923; 87040; 87070; 87205; 93005; 93010; 93306; 94761; 96365; 96367; 97110; 97112; 97116; 97162; 97165; 97530; 97535; 99284-25; A9270; J0456; J0696; J1815; J7040; J7050; J7512; P9016